=== PATIENT | female | born 1965 | race African-American/Black ===

== ENCOUNTER 2023-04-06 13:16 | Outpatient (AMB) | payer OTHER, SELFPAY ==
[2023-04-06 13:43] VITALS: BP 114/70; PULSE 88; O2SAT 99; BMI 27.3
--- NOTE | 2023-04-06 13:43 | MHC.OFFVIS ---
Intake Vital Signs 04/06/23 13:43 Height 4 ft 11 in Weight 135 lb BMI 27.3 BP 114/70 Blood Pressure Location Rt brachial Position Sitting Pulse 88 Pulse Source Pulse Oximeter Pulse Oximetry (%) 99 Oxygen Delivery Method Room Air Intake Visit Reasons: Shortness of breath Machine Binding Folder Required: No Allergies Penicillins [PCN] Allergy (Mild, Unverified 04/06/23 13:45) HIVES HPI HPI Comments History of Present Illness Details The patient is here for a pulmonary evaluation. The patient is a 57 year woman with a known history of tobacco dependency who presents with ongoing worsening respiratory symptoms over the last few months. She has been diagnosed with an upper respiratory illness back in the summer and then after that she has had a couple lower respiratory infection with significant bronchitis and mucus production. She was given a rescue inhaler. Because of the ongoing smoking the patient was referred to the lung cancer screening program at [facility]. Although she has been reluctant to go because of concerns of what they could find. I did encourage her to do it. She did have a chest x-ray relatively recent that I did review demonstrating no acute disease which is reassuring. In addition to that she does need to undergo pulmonary function studies that I do not see available as of yet. The patient does have the rescue inhaler but she has not used it. She still coughing some but the mucus appears to be more related to a recent lower respiratory infection as her mom also has been sick with a viral syndrome as well. She has been coughing up yellowish mucus. Drjv-[id number] severity. Denies any wheezing or chest tightness. Otherwise the patient is doing well. [facility] Medical History (Updated 04/06/23 @ 18:55 by Itz Rosales MD) Cough Tobacco dependence Social History (Updated 04/06/23 @ 13:47 by STEFANIA Rios) Patient Tobacco Use Status: Current everyday Tobacco user Tobacco use type: Cigarette Review of Systems Const Denies fever(s) and Denies weight loss Eyes Reports no additional complaints ENT Reports nasal congestion and Reports nasal discharge Card Denies chest pain Resp Reports chest congestion, Reports cough and Denies wheezing GI Reports no additional complaints Musc Reports no additional complaints Skin/Breast Denies rash Neuro Reports no additional complaints Rasheed/Lymph Denies lymphadenopathy Aller/Immun Denies wheezing Physical Exam Vital Signs: Last Vital Signs Pulse 88 04/06/23 13:43 BP 114/70 04/06/23 13:43 Pulse Ox 99 04/06/23 13:43 Oxygen Delivery Method Room Air 04/06/23 13:43 BMI result Body Mass Index 27.3 Const General: comfortable HEENT Head: Yes normocephalic Neck Neck: Yes supple Chest Chest palpation & inspection: normal inspection of the chest Resp Effort & Inspection: normal respiratory effort Auscultation: clear to auscultation bilaterally, no rales, no rhonchi and no wheezes Cardio Rate: regular rate Rhythm: regular rhythm Heart sounds: S1 normal heart sound present and S2 normal heart sound present GI Palpation (GI): Soft to palpation Skin General skin exam: no rashes or lesions noted Extrem General: Yes no clubbing, cyanosis or edema Assessment & Plan Assessment & Plan (1) Tobacco dependence: Code(s): F17.200 - Nicotine dependence, unspecified, uncomplicated (2) Cough: Code(s): R05.9 - Cough, unspecified Qualifiers: Cough type: subacute Qualified Code(s): R05.2 - Subacute cough Plan BOBBY as needed Start Wellbutrin 75mg BID x 14 days, then 150mg BID start nicotene patch when ready to quit PFTs LDCT-at [facility] F/U 3-4 months Orders: Orders PFT pulmonary function test Today R05.2 - Subacute cough Medications: New bupropion HCl 150 mg (2 x 75 mg) PO BID 120 tabs 11RF 30 days nicotine 1 patch transdermal DAILY 28 ea 6RF 28 days doxycycline hyclate 100 mg PO BID 20 caps 0RF 10 days Coding Level of Care Code New Pt Level 4 (05459) Diagnoses Tobacco dependence F17.200 Subacute cough R05.2 Cough type: subacute Time Spent (min) 35
== END 2023-04-06 14:42 | disposition home or self-care (01) ==
PROVIDERS: PCP Internal Medicine; Referring Provider Internal Medicine; Visit Provider Hospitalist
DX: F17.200 Nicotine dependence, unspecified, uncomplicated (principal); R05.2 Subacute cough
CPT/HCPCS: 99204

== ENCOUNTER → 2023-04-06 13:16 | Outpatient (BNVA) | payer OTHER, SELFPAY | PROVIDERS: PCP Internal Medicine; Referring Provider Internal Medicine; Visit Provider Hospitalist ==

== ENCOUNTER 2023-07-30 08:39 | Outpatient (REF) | payer OTHER, SELFPAY ==
[2023-07-30 09:27] VITALS: PULSE 88; RESP 16; O2SAT 99
--- NOTE | 2023-07-30 14:03 | PFT_ITS ---
Flows: FEV1: 76 % of predicted at 1.42 L FVC: 89 % of predicted at 2.09 L FEV1/FVC: 68 % Bronchodilator response: Absent Volumes: Total lung capacity: 86 % of predicted at 3.79 L Residual volume: 113 % of predicted at 1.70 L Slow vital capacity: 71 % of predicted at 2.09 L Expiratory reserve volume: 107 % of predicted at 0.75 L Diffusion capacity: Moderately decreased, adjusts to being mildly decreased after correction for alveolar ventilation. Impression: Moderate obstructive ventilatory defect with no bronchodilator response. Decreased diffusion capacity suggests emphysema. MTDD
== END 2023-07-30 08:40 | disposition home or self-care (01) ==
LOC: HO.RESP 08:39
PROVIDERS: PCP Internal Medicine; Visit Provider Hospitalist
DX: R05.2 Subacute cough (principal)
CPT/HCPCS: 94010; 94640; 94727; 94729

== ENCOUNTER → 2023-07-30 14:03 | Outpatient (BNV) | payer OTHER, SELFPAY | PROVIDERS: PCP Internal Medicine; Visit Provider Internal Medicine Pulmonary Disease | DX: R06.09 Other forms of dyspnea (principal) | CPT/HCPCS: 94060; 94727; 94729 ==

== ENCOUNTER 2023-08-31 15:03 | Outpatient (AMB) | payer OTHER, SELFPAY ==
[2023-08-31 15:21] VITALS: PULSE 86; O2SAT 98; BMI 26.3
--- NOTE | 2023-08-31 15:21 | A.OFFVIS_ITS ---
Vital Signs 08/31/23 15:21 Height 4 ft 11 in Weight 130 lb BMI 26.3 Pulse 86 Pulse Source Pulse Oximeter Pulse Oximetry (%) 98 Oxygen Delivery Method Room Air Intake Visit Reasons: dyspnea Nylon Operator Required: No Allergies Penicillins [PCN] Allergy (Mild, Unverified 08/31/23 15:23) HIVES HPI Comments Details: The patient is a 58 year woman with a known history of tobacco dependency who presents with ongoing worsening respiratory symptoms over the last few months. She has been diagnosed with an upper respiratory illness back in the summer and then after that she has had a couple lower respiratory infection with significant bronchitis and mucus production. She was given a rescue inhaler. Because of the ongoing smoking the patient was referred [facility]. Although she has been reluctant to go because of concerns of what they could find. I did encourage her to do it. She did have a chest x-ray relatively recent that I did review demonstrating no acute disease which is reassuring. In addition to that she does need to undergo pulmonary function studies that I do not see available as of yet. The patient does have the rescue inhaler but she has not used it. She still coughing some but the mucus appears to be more related to a recent lower respiratory infection as her mom also has been sick with a viral syndrome as well. She has been coughing up yellowish mucus. [id number]-tglhoqtn severity. Denies any wheezing or chest tightness. Otherwise the patient is doing well. 08/31/2023 the patient is here for a pulmonary follow-up visit. The patient overall is doing okay. She is complaining of increasing shortness of breath and chest congestion. Primarily in the summertime he gets a little more humid and difficult to breathe. She has been using the rescue inhaler but no significant improvement. She did undergo pulmonary function studies which we personally reviewed. Appears to have moderate COPD. No significant response to the albuterol. Therefore, I did recommend she can start a maintenance inhaler. She will start Trelegy at this time. We did go over how to use it. The patient will try and hopefully be able to decrease the amount of medication coming the fall when the air quality becomes little easier. She is also working on smoking cessation. 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 She is waiting to be ready to reach her quit date. I did recommend she can start the Wellbutrin anyway. The patient has not had her lung cancer screening CT scan at [facility]. She has been reluctant to do so. She is going to think about it for now. She also needs a Prevnar 20 vaccine. Will plan to give it to her during the next visit she has not had already. [facility] Medical History (Updated 08/31/23 @ 23:01 by Itz Rosales MD) COPD (chronic obstructive pulmonary disease) Cough Tobacco dependence Social History (Updated 04/06/23 @ 13:47 by STEFANIA Rios) Patient Tobacco Use Status: Current everyday Tobacco user Tobacco use type: Cigarette Review of Systems Const Denies fever(s) and Denies weight loss Eyes Reports no additional complaints ENT Reports nasal congestion and Reports nasal discharge Card Denies chest pain Resp Reports chest congestion, Reports cough and Reports wheezing GI Reports no additional complaints Musc Reports no additional complaints Skin/Breast Denies rash Neuro Reports no additional complaints Rasheed/Lymph Denies lymphadenopathy Aller/Immun Reports wheezing Physical Exam Vital Signs: Last Vital Signs Pulse 86 08/31/23 15:21 Pulse Ox 98 08/31/23 15:21 Oxygen Delivery Method Room Air 08/31/23 15:21 BMI result Body Mass Index 26.3 Const General: comfortable HEENT Head: Yes normocephalic Neck Neck: Yes supple Chest Chest palpation & inspection: normal inspection of the chest Resp Effort & Inspection: normal respiratory effort and prolonged expiratory phase Auscultation: no rales, no rhonchi, no wheezes and diminished lung sounds Cardio Rate: regular rate Rhythm: regular rhythm Heart sounds: S1 normal heart sound present and S2 normal heart sound present GI Palpation (GI): Soft to palpation Skin General skin exam: no rashes or lesions noted Extrem General: Yes no clubbing, cyanosis or edema Assessment & Plan Assessment & Plan (1) Tobacco dependence: Code(s): F17.200 - Nicotine dependence, unspecified, uncomplicated Category: Medical (2) Cough: Code(s): R05.9 - Cough, unspecified Category: Medical Qualifiers: Cough type: subacute Qualified Code(s): R05.2 - Subacute cough (3) COPD (chronic obstructive pulmonary disease): Code(s): J44.9 - Chronic obstructive pulmonary disease, unspecified Category: Medical Qualifiers: COPD type: chronic bronchitis Chronic bronchitis type: mixed simple and mucopurulent Qualified Code(s): J41.8 - Mixed simple and mucopurulent chronic bronchitis Plan BOBBY as needed start Trelegy 200->100 Start Wellbutrin 75mg BID x 14 days, then 150mg BID start nicotene patch when ready to quit LDCT-at [facility] F/U 6 months Medications: New skhxwhuktuo-stdbhxoeg-gepupktx 100-62.5-25 mcg (Trelegy Ellipta) 1 inh inhalation DAILY 60 ea 11RF 30 days J44.9 - Chronic obstructive pulmonary disease, unspecified Coding Level of Care Code Est Pt Level 4 (88331) Diagnoses Tobacco dependence F17.200 Subacute cough R05.2 Cough type: subacute Mixed simple and mucopurulent chronic bronchitis J41.8 COPD type: chronic bronchitis Chronic bronchitis type: mixed simple and mucopurulent Time Spent (min) 17
== END 2023-08-31 15:52 | disposition home or self-care (01) ==
PROVIDERS: PCP Internal Medicine; Visit Provider Hospitalist
DX: F17.200 Nicotine dependence, unspecified, uncomplicated (principal); R05.2 Subacute cough; J41.8 Mixed simple and mucopurulent chronic bronchitis
CPT/HCPCS: 99214

== ENCOUNTER → 2023-08-31 15:03 | Outpatient (BNVA) | payer OTHER, SELFPAY | PROVIDERS: PCP Internal Medicine; Visit Provider Hospitalist ==

== ENCOUNTER 2024-03-06 15:03 | Outpatient (AMB) | payer OTHER, SELFPAY ==
--- NOTE | 2024-03-06 15:13 | MHC.OFFVIS ---
Vital Signs 03/06/24 15:14 Height 4 ft 11 in Weight 134 lb BMI 27.1 BP 110/64 Blood Pressure Location Lt brachial Position Sitting Pulse 87 Pulse Source Pulse Oximeter Pulse Oximetry (%) 99 Oxygen Delivery Method Room Air Intake Visit Reasons: Dyspnea Records Management Manager Required: No Allergies Penicillins [PCN] Allergy (Mild, Unverified 03/06/24 15:19) HIVES HPI Comments Details: The patient is a 58 year woman with a known history of tobacco dependency who presents with ongoing worsening respiratory symptoms over the last few months. She has been diagnosed with an upper respiratory illness back in the summer and then after that she has had a couple lower respiratory infection with significant bronchitis and mucus production. She was given a rescue inhaler. Because of the ongoing smoking the patient was referred to the lung cancer screening program at [facility]. Although she has been reluctant to go because of concerns of what they could find. I did encourage her to do it. She did have a chest x-ray relatively recent that I did review demonstrating no acute disease which is reassuring. In addition to that she does need to undergo pulmonary function studies that I do not see available as of yet. The patient does have the rescue inhaler but she has not used it. She still coughing some but the mucus appears to be more related to a recent lower respiratory infection as her mom also has been sick with a viral syndrome as well. She has been coughing up yellowish mucus. Mrez-ki-dslwvyee severity. Denies any wheezing or chest tightness. Otherwise the patient is doing well. 08/31/2023 the patient is here for a pulmonary follow-up visit. The patient overall is doing okay. She is complaining of increasing shortness of breath and chest congestion. Primarily in the summertime he gets a little more humid and difficult to breathe. She has been using the rescue inhaler but no significant improvement. She did undergo pulmonary function studies which we personally reviewed. Appears to have moderate COPD. No significant response to the albuterol. Therefore, I did recommend she can start a maintenance inhaler. She will start Trelegy at this time. We did go over how to use it. The patient will try and hopefully be able to decrease the amount of medication coming the fall when the air quality becomes little easier. She is also working on smoking cessation. 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 She is waiting to be ready to reach her quit date. I did recommend she can start the Wellbutrin anyway. The patient has not had her lung cancer screening CT scan at [facility]. She has been reluctant to do so. She is going to think about it for now. She also needs a Prevnar 20 vaccine. Will plan to give it to her during the next visit she has not had already. 03/06/2024 the patient is here for a pulmonary follow-up visit. Overall the patient has been doing okay. She is still smoking however. She did not start the Wellbutrin. She has been dealing with her daughter who became sick after traumatic injury. Therefore she has not been able to take care of herself as far as his smoking cessation. She is thinking about starting the Wellbutrin. If she does show start with 1 tablet twice a day and then workup to the 2 tablets twice a day. She also has the patches that she can apply when she is ready to quit. The patient also has been using the Trelegy inhaler that has been affecting beneficial. We did decrease it down to the lower dose and she seems to be tolerating that well. She should be participating in the lung cancer screening program. She had been taking part the [facility] program. Although she has been lost to follow-up with the program. She is going to follow-up with her primary care doctor and she is going to get reinstated. Otherwise she can always call here we can get her active in our program. [facility] Medical History (Updated 08/31/23 @ 23:01 by Itz Rosales MD) COPD (chronic obstructive pulmonary disease) Cough Tobacco dependence Social History (Updated 03/06/24 @ 15:22 by STEFANIA Silver) Patient Tobacco Use Status: Current everyday Tobacco user Tobacco use type: Cigarette Cigarette Packs Per Day: 0.5 Cigarettes Per Day: 5 Review of Systems Const Denies fever(s) and Denies weight loss Eyes Reports no additional complaints ENT Reports nasal congestion and Reports nasal discharge Card Denies chest pain Resp Reports cough and Reports wheezing GI Reports no additional complaints Musc Reports back pain and Reports myalgias Skin/Breast Denies rash Neuro Reports no additional complaints Rasheed/Lymph Denies lymphadenopathy Aller/Immun Reports wheezing Physical Exam Vital Signs: Last Vital Signs Pulse 87 03/06/24 15:14 BP 110/64 03/06/24 15:14 Pulse Ox 99 03/06/24 15:14 Oxygen Delivery Method Room Air 03/06/24 15:14 BMI result Body Mass Index 27.1 Const General: comfortable HEENT Head: Yes normocephalic Neck Neck: Yes supple Chest Chest palpation & inspection: normal inspection of the chest Resp Effort & Inspection: normal respiratory effort Auscultation: no rales, no rhonchi, no wheezes and diminished lung sounds Cardio Rate: regular rate Rhythm: regular rhythm Heart sounds: S1 normal heart sound present and S2 normal heart sound present GI Palpation (GI): Soft to palpation Skin General skin exam: no rashes or lesions noted Extrem General: Yes no clubbing, cyanosis or edema Office Procedures Flu Questionnaire Does the patient have a severe egg allergy?: No Does the patient have severe life threatening allergies?: No Does the patient have a fever or illness today?: No Has the patient ever had Guillain-[place] Syndrome?: No Has the patient ever had any past reaction to a flu shot?: No Immunizations Fluarix Triv [id number] (PF) 45 mcg (15 mcg x 3)/0.5 mL IM syringe Performing Provider: Itz Rosales MD [place] [facility] [place] [facility] Administered by: Itz Rosales MD on 03/06/24 20:50 Dose Route Admin Location Dispensed Lot Number Expiration Date NDC Flower Picker 0.5 mL IM Left Deltoid 0.5 mL [id number] 10/09/24 [id number] [email or web address] VIS Given Date VIS Provided VIS Publication Date 03/06/24 Single Vaccine 20 Eligibility Eligibility Date Funding Source Not [facility] Eligible 03/06/24 Private Assessment & Plan Assessment & Plan (1) Tobacco dependence: Code(s): F17.200 - Nicotine dependence, unspecified, uncomplicated Category: Medical (2) Cough: Code(s): R05.9 - Cough, unspecified Category: Medical Qualifiers: Cough type: subacute Qualified Code(s): R05.2 - Subacute cough (3) COPD (chronic obstructive pulmonary disease): Code(s): J44.9 - Chronic obstructive pulmonary disease, unspecified Category: Medical Qualifiers: COPD type: chronic bronchitis Chronic bronchitis type: mixed simple and mucopurulent Qualified Code(s): J41.8 - Mixed simple and mucopurulent chronic bronchitis Plan BOBBY as needed continue Trelegy 100 [place]CT-at [facility] tobacco cessation: wellbutrin and patch when ready F/U 8-12 months Orders: Orders Influenza [id number] Immunization Today Z23 - Encounter for immunization Medications: New Fluarix Triv [id number] (PF) (flu vacc [id number] 6mos up(PF)) 0.5 mL IM ONCE 0.5 mL 0RF NS Z23 - Encounter for immunization Coding Level of Care Code Est Pt Level 4 (76692) Diagnoses Tobacco dependence F17.200 Subacute cough R05.2 Cough type: subacute Mixed simple and mucopurulent chronic bronchitis J41.8 COPD type: chronic bronchitis Chronic bronchitis type: mixed simple and mucopurulent Time Spent (min) 16
[2024-03-06 15:14] VITALS: BP 110/64; PULSE 87; O2SAT 99; BMI 27.1
== END 2024-03-06 15:54 | disposition home or self-care (01) ==
PROVIDERS: PCP Internal Medicine; Visit Provider Hospitalist
DX: F17.200 Nicotine dependence, unspecified, uncomplicated (principal); R05.2 Subacute cough; J41.8 Mixed simple and mucopurulent chronic bronchitis; Z23 Encounter for immunization
CPT/HCPCS: 99214

== ENCOUNTER → 2024-03-06 15:03 | Outpatient (BNVA) | payer OTHER, SELFPAY | PROVIDERS: PCP Internal Medicine; Visit Provider Hospitalist | DX: J41.8 Mixed simple and mucopurulent chronic bronchitis (principal); R05.2 Subacute cough; F17.210 Nicotine dependence, cigarettes, uncomplicated; Z23 Encounter for immunization | CPT/HCPCS: 90471; 90656 ==

== ENCOUNTER 2024-11-20 10:00 | Outpatient (AMB) | payer OTHER, SELFPAY ==
[2024-11-20 10:03] VITALS: BP 110/60; PULSE 80; O2SAT 99; BMI 28.0
--- NOTE | 2024-11-20 10:03 | MHC.OFFVIS ---
Vital Signs 11/20/24 10:03 Height 4 ft 11 in Weight 138 lb 14.259 oz BMI 28.0 BP 110/60 Blood Pressure Location Lt brachial Position Sitting Pulse 80 Pulse Source Pulse Oximeter Pulse Oximetry (%) 99 Oxygen Delivery Method Room Air Intake Visit Reasons: Dyspnea Director Talent Management Required: No Accompanied by: Self / Same As Patient Allergies Penicillins (PCN) Allergy (Mild, Verified 11/20/24 10:07) HIVES HPI Comments Details: The patient is a 59 year woman with a known history of tobacco dependency who presents with ongoing worsening respiratory symptoms over the last few months. She has been diagnosed with an upper respiratory illness back in the summer and then after that she has had a couple lower respiratory infection with significant bronchitis and mucus production. She was given a rescue inhaler. Because of the ongoing smoking the patient was referred to the lung cancer screening program at [facility]. Although she has been reluctant to go because of concerns of what they could find. I did encourage her to do it. She did have a chest x-ray relatively recent that I did review demonstrating no acute disease which is reassuring. In addition to that she does need to undergo pulmonary function studies that I do not see available as of yet. The patient does have the rescue inhaler but she has not used it. She still coughing some but the mucus appears to be more related to a recent lower respiratory infection as her mom also has been sick with a viral syndrome as well. She has been coughing up yellowish mucus. [id number] severity. Denies any wheezing or chest tightness. Otherwise the patient is doing well. 08/31/2023 the patient is here for a pulmonary follow-up visit. The patient overall is doing okay. She is complaining of increasing shortness of breath and chest congestion. Primarily in the summertime he gets a little more humid and difficult to breathe. She has been using the rescue inhaler but no significant improvement. She did undergo pulmonary function studies which we personally reviewed. Appears to have moderate COPD. No significant response to the albuterol. Therefore, I did recommend she can start a maintenance inhaler. She will start Trelegy at this time. We did go over how to use it. The patient will try and hopefully be able to decrease the amount of medication coming the fall when the air quality becomes little easier. She is also working on smoking cessation. She did turkey picker the Wellbutrin and she also has a nicotine patches. She is waiting to be ready to reach her quit date. I did recommend she can start the Wellbutrin anyway. The patient has not had her lung cancer screening CT scan at [facility]. She has been reluctant to do so. She is going to think about it for now. She also needs a Prevnar 20 vaccine. Will plan to give it to her during the next visit she has not had already. 03/06/2024 the patient is here for a pulmonary follow-up visit. Overall the patient has been doing okay. She is still smoking however. She did not start the Wellbutrin. She has been dealing with her daughter who became sick after traumatic injury. Therefore she has not been able to take care of herself as far as his smoking cessation. She is thinking about starting the Wellbutrin. If she does show start with 1 tablet twice a day and then workup to the 2 tablets twice a day. She also has the patches that she can apply when she is ready to quit. The patient also has been using the Trelegy inhaler that has been affecting beneficial. We did decrease it down to the lower dose and she seems to be tolerating that well. She should be participating in the lung cancer screening program. She had been taking part the [facility] program. Although she has been lost to follow-up with the program. She is going to follow-up with her primary care doctor and she is going to get reinstated. Otherwise she can always call here we can get her active in our program. 11/20/2024 the patient is here for a pulmonary follow-up visit. Overall the patient is doing well. She continues on the Trelegy. She also has a rescue inhaler. Unfortunately she continues to smoke cigarettes. She was supposed to take part in the lung cancer screening program at [facility] but she had not done so. Therefore she is agreeable to be referred to the program here will we can do the low-dose CT scans on a yearly basis with the risks was smoking and her risk of lung cancer. Otherwise the patient denies any other complaints. Will have her follow-up sometime in 2025 and will follow-up with her low-dose CAT scan when is available. We did talk about vaccines as well she does need to get a pneumonia vaccine provided and also she is also eligible for the RSV vaccine in the flu shot in the fall. [facility] Medical History (Updated 08/31/23 @ 23:01 by Itz Rosales MD) COPD (chronic obstructive pulmonary disease) Cough Tobacco dependence Social History Patient Tobacco Use Status: Current everyday Tobacco user Tobacco use type: Cigarette Cigarette Packs Per Day: 0.5 Cigarettes Per Day: 5 Review of Systems Const Denies fever(s) and Denies weight loss Eyes Reports no additional complaints ENT Reports nasal congestion and Reports nasal discharge Card Denies chest pain Resp Reports cough and Reports wheezing GI Reports no additional complaints Musc Reports back pain and Reports myalgias Skin/Breast Denies rash Neuro Reports no additional complaints Rasheed/Lymph Denies lymphadenopathy Aller/Immun Reports wheezing Physical Exam Vital Signs: Last Vital Signs Pulse 80 11/20/24 10:03 BP 110/60 11/20/24 10:03 Pulse Ox 99 11/20/24 10:03 Oxygen Delivery Method Room Air 11/20/24 10:03 BMI result Body Mass Index 28.0 Const General: comfortable HEENT Head: Yes normocephalic Neck Neck: Yes supple Chest Chest palpation & inspection: normal inspection of the chest Resp Effort & Inspection: normal respiratory effort Auscultation: no rales, no rhonchi, no wheezes and diminished lung sounds Cardio Rate: regular rate Rhythm: regular rhythm Heart sounds: S1 normal heart sound present and S2 normal heart sound present GI Palpation (GI): Soft to palpation Skin General skin exam: no rashes or lesions noted Extrem General: Yes no clubbing, cyanosis or edema Assessment & Plan Assessment & Plan (1) Tobacco dependence: Code(s): F17.200 - Nicotine dependence, unspecified, uncomplicated Category: Medical (2) Cough: Code(s): R05.9 - Cough, unspecified Category: Medical Qualifiers: Cough type: subacute Qualified Code(s): R05.2 - Subacute cough (3) COPD (chronic obstructive pulmonary disease): Code(s): J44.9 - Chronic obstructive pulmonary disease, unspecified Category: Medical Qualifiers: COPD type: chronic bronchitis Chronic bronchitis type: mixed simple and mucopurulent Qualified Code(s): J41.8 - Mixed simple and mucopurulent chronic bronchitis Plan BOBBY as needed continue Trelegy 100 start LDCT tobacco cessation: wellbutrin and patch when ready F/U 8-12 months Orders: Referrals Lung Cancer Screening Referral F17.200 - Nicotine dependence, unspecified, uncomplicated Coding Level of Care Code Est Pt Level 4 (37180) Diagnoses Tobacco dependence F17.200 Subacute cough R05.2 Cough type: subacute Mixed simple and mucopurulent chronic bronchitis J41.8 COPD type: chronic bronchitis Chronic bronchitis type: mixed simple and mucopurulent Time Spent (min) 16
--- OUTSIDE RECORDS SUMMARY | 2024-11-20 10:37 | XMS_ITS | Patient Health Record ---
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 Name Role Phone LAURE CARDENAS Unavailable [phone] KRISTEL QUIROGAEN Unavailable [phone] ANGEL AMADOR Unavailable [phone] Allergies Allergen (clinical drug ingredient) Drug/Non Drug Allergy documented on EMR Reaction Allergy Type Onset Date Status Penicillin hives Drug Allergy Active Results Component Value Reference Range Notes CBC WITH AUTO DIFFERENTIAL Reviewed date:04/07/2024 11:37:53 AM Interpretation: Performing Lab: Notes/Report: WBC 12.5 4.8-10.8 K/mcL RBC 4.60 3.80-4.80 M/mcL Hemoglobin 14.1 11.5-16.0 g/dL Hematocrit 43.1 35.0-47.0 % MCV 94.5 79.0-98.0 FL MCH 30.9 27.0-32.0 pcg MCHC 32.7 32.0-37.0 g/dL RDW 13.2 11.0-15.0 % Platelets 346 130-400 K/mcL MPV 10.2 7.0-11.0 FL NRBC 0.0 <1.0 % NRBC Absolute 0.00 <0.10 K/mcL Neutrophils Relative 60.2 Lymphocytes Relative 29.0 Monocytes Relative 6.6 Eosinophils Relative 3.6 Basophils Relative 0.4 Immature Granulocytes Relative 0.2 Neutrophils Absolute 7.53 1.50-7.00 K/mcL Lymphocytes Absolute 3.63 1.00-5.00 K/mcL Monocytes Absolute 0.82 0.20-1.00 K/mcL Eosinophils Absolute 0.45 0.00-0.50 K/mcL Basophils Absolute 0.05 0.00-0.20 K/mcL Immature Granulocytes Absolute 0.03 0.00-0.03 K/mcL EKG (Not yet reviewed by pro vider) Interpretation: Performing Lab: Notes/Report: ECGDiastolicBP 68 ECGHr 65 ECGPRInterval 172 ECGPWaveAxis 64 ECGQRSDuration 92 ECGQrsWaveAxis 67 ECGQTcInterval 410 ECGQTInterval 402 ECGSystolicBP 126 ECGTWaveAxis 43 RR_DiastolicBP 0 RR_MaxRRInterval 0 RR_MeanHR 0 RR_MeanRRInterval 0 RR_MinRRInterval 0 RR_NumBeats 0 RR_NumNormalBeats 0 RR_SystolicBP 0 Reason For Referral No Information Medications Medication SIG (Take, Route, Frequency, Duration) Notes Start Date End Date Status hydroCHLOROthiazide 12.5 MG TAKE 1 CAPSU LE BY MOUTH EVERY DAY IN THE MORNING FOR 90 DAYS; Duration: 90 Active Flonase Allergy Relief 50 MCG/ACT 1 spray in each nostril Nasally Once a day; Duration: 30 day(s) 09/15/2021 Active Albuterol Sulfate HFA 108 (90 Base) MCG/ACT INHALE 1 PUFF INTO THE LUNGS EVERY 4 HOURS NEEDED FOR 30 DAYS; Duration: 30 Active Atorvastatin Calcium 10 MG TAKE 1 TABLET BY MOUTH EVERY DAY; Duration: 90 Active Trelegy Ellipta 100mg tablet A ctive Betamethasone Dipropionate Aug 0.05 % 1 application Externally Once a day; Duration: 90 days Active Immunizations Vaccine Route Administration Date Status Comme nts influenza IM Intramuscular 02/11/2021 Administered influenza IM Intramuscular 04/07/2023 Administered Social History Tobacco Use: Social History Observation Description Date Details (start date - stop date) Former Smoker NA - NA Tobacco Use/Smoking Question Answer Notes Are you a former smoker Alcohol Screen (Audit-C) Question Answer Notes Did you have a drink contain ing alcohol in the past year? Yes How often did you have a dri nk containing alcohol in the past year? Monthly or less (1 point) How many drinks did you have on a typical day when you were drinking in the past year? 1 or 2 drinks (0 point) How often did you have 6 or more drinks on one occasion in the past year? Never (0 point) Points 1 Interpretation Negative Section Notes: on and off smoker for years on and off smoker for years Quit smoking about 1 1/2 years ago Tob: Less than 1/2 PPD, off on and off smoker for years ETOH: Rare on and off smoker for years Tob: Less than 1/2 PPD, off on and off smoker for years ETOH: Rare on and off smoker for years on and off smoker for years Quit smoking about 1 1/2 years ago on and off smoker for years on and off smoker for years Quit smoking about 1 1/2 years ago on and off smoker for years on and off smoker for years on and off smoker for years on and off smoker for years on and off smoker for years on and off smoker for years on and off smoker for years on and off smoker for years on and off smoker for years on and off smoker for years on and off smoker for years Problems Problem Type SNOMED Code ICD Code Onset Dates Problem Status W/U Status Risk Notes Problem Chronic rhinitis (31313942) Chronic rhinitis (J31.0) Active confirmed Problem Chronic maxillary sinusitis (00080010) Chronic maxillary sinusitis (J32.0) Active confirmed Problem Chronic sinusitis (13561175) Chronic sinusitis, unspecified (J32.9) Active confirmed Problem Hematuria (80074699) Hematuria, unspecified (R31.9) Active confirmed Problem Screening for osteoporosis (712889191) Encounter for screening for osteoporosis (Z13.820) Active confirmed Problem Hyperlipidemia (04690069) Hyperlipidemia, unspecified (E78.5) Active confirmed Problem Hyperlipidaemia (68386680) Hyperlipidemia, unspecified hyperlipidemia type (E78.5) Active confirmed Problem Hematuria syndrome (69689273) Hematuria, unspecified type (R31.9) Active confirmed Problem Hypothyroidism (47767876) Hypothyroidism, unspecified type (E03.9) Active confirmed Problem Seasonal allergy (711504001) Seasonal allergies (J30.2) Active confirmed Problem Vitamin D deficiency (51978116) Vitamin D deficiency (E55.9) Active confirmed Problem Screening for malignant neoplasm of breast (701555654) Breast cancer screening by mammogram (Z12.31) Active confirmed Problem Leukocytosis (907678440) Leukocytosis, unspecified type (D72.829) Active confirmed Problem Allergic rhinitis caused by pollen (89886852) Seasonal allergic rhinitis due to pollen (J30.1) Active confirmed Problem Mixed hyperlipidemia (442672103) Moderate mixed hyperlipidemia not requiring statin therapy (E78.2) Active confirmed Problem Headache (81808603) Headache, unspecified (R51.9) Active confirmed Problem Elevated blood-pressure reading without diagnosis of hypertension (979027979) Elevated blood pressure reading (R03.0) Active confirmed Problem Chronic frontal sinusitis (78635752) Frontal sinusitis, unspecified chronicity (J32.1) Active confirmed Problem Recurrent sinusitis (381957901) Recurrent sinusitis (J32.9) Active confirmed Problem Paresthesia (80020400) Paresthesia (R20.2) Active confirmed Problem Vitamin B>12< deficiency anaemia (86655878) Anemia due to vitamin B12 deficiency, 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) Active confirmed Problem Screening for skin cancer (837936919) Skin cancer screening (Z12.83) Active confirmed Problem Smoking (51866392) Smoking (F17.200) Active con firmed Problem Allergic rhinitis (71574615) Seasonal allergic rhinitis due to other allergic trigger (J30.89) Active confirmed Problem Skin sensation disturbance (58254683) Hand numbness (R20.0) Active confirmed Problem Skin sensation disturbance (21963157) Right hand paresthesia (R20.2) Active confirmed Problem Asthma (601088885) Asthma (J45.909) Active conf irmed Problem Low back pain (finding) (891278672) Back pain at L4-L5 level (M54.50) Active confirmed Problem Leukocytosis (603231057) Leukocytosis, unspecified (D72.829) Active confirmed Problem Essential hypertension (98867588) Hypertension, essential (I10) Active confirmed Vital Signs Heart Rate 89 /min 08/22/2024 Oximetry 98 % 08/22/2024 Blood pressure diastolic 72 mm Hg 08/22/2024 Height 60 in 08/22/2024 Blood pressure systolic 132 mm Hg 08/22/2024 Weight 140.0 lbs 08/22/2024 BMI 27.34 kg/m2 08/22/2024 Encounters Encounter Location Date Provider Diagnosis [facility] [address] [place] [address] 04/10/2024 ANGEL AMADOR Leukocytosis, unspecified D72.829 ; Annual physical exam Z00.00 ; Chest pain in adult R07.9 ; Recurrent sinusitis J32.9 ; URI, acute J06.9 ; Adult general medical exam Z00.00 ; Hyperlipidemia, unspecified E78.5 ; Vitamin D deficiency E55.9 ; Hypothyroidism, unspecified type E03.9 ; Anemia due to vitamin B12 deficiency, unspecified B12 deficiency type D51.9 ; Breast cancer screening by mammogram Z12.31 ; Encounter for screening for osteoporosis Z13.820 and Close exposure to 2019 novel coronavirus Z20.[address] [facility] [address] [place] [address] 08/22/2024 ANGEL AMADOR Leukocytosis, unspecified D72.829 ; Hyperlipidemia, unspecified E78.5 ; Vitamin D deficiency E55.9 ; Hypothyroidism, unspecified type E03.9 ; Hip pain, left M25.552 and Encounter for examination of blood pressure without abnormal findings Z01.[address] [facility] [address] [place] [address] 01/04/2024 LAURE CARDENAS [facility] [address] [address] 04/10/2024 ANGEL AMADOR [facility] [address] [address] 04/13/2024 ANGEL AMADOR [facility] [address] [address] 04/26/2024 ANGEL AMADOR Assessments Encounter Date Diagnosis (ICD Code) Assessment Notes Treatment Notes Treatment Clinical Notes Section Notes 04/10/2024 Annual physical exam (ICD-10 - Z00.00) #Leukocytosis. CBC only obtained. Need peripheral smear. Consider consultation to hematology if peripheral smear is abnormal. Would like to rule out CLL. #Hypertension. Well-controlled #Asthma. Patient was instructed to rinse her mouth after use of Trelegy, as this could be contributing to recurrent sinusitis and tooth infections. # URI sx. COVID swab pending. High risk for bronchitis given smoking hx # Chest pain; Reports ongoing off and on over a few months. Check EKG. Stress test will be ordered .No family hx of cardiac disease # Vaccines: UTD # Screenings: Mammo/bone density due. STAFF THERAPIST pap due. # HCP: Daughter Patient seen and examined. Comprehensive discussion was done on the following. 1. Nutrition: It is important to follow a healthy diet based on lots of vegetables and legumes and good fat. Avoid processed food and processed carbohydrates. Learn to prepare your own meals. Learn to read labels and avoid high fructose corn syrup, processed chemicals added to increase shelf life and preprepared meals. Avoid fast foods. Learn to eat slowly and plan meals for a week. Try to count calories and be mindful off daily calorie intake. Get into the habit of keeping an eye on your weight by using an appropriate scale. Learn to log exercise and discussed fitness Apps like [employer] which can help keep log off calories taken versus calories burned. Local food should be preferred. Discussed Dirty Dozen Versus Clean Fifteen. Discussed healthy supplements like fish oil, Tumeric, Curcumin, Melatonin, Resveratrol, Probiotics, Vitamin-D, Alpha-Lipoic acid, Vitamin-D and coconut oil. 2. It is important to exercise regularly. Is a good habit to walk at least 30-45 minutes a day. Gentle weightlifting with standard precautions to protect the back. Finding activity like cycling or hiking and get into the habit of engaging in it. Stretching before and after the exercises important. It is also important to contact me if there are any problems like shortness of breath, chest pain, back pain and joint or muscle pain associated with the exercise. 3. Discussed age appropriate screening guidelines. Colonoscopy needs to start at age 50 with stool for occult blood as appropriate. There is a new test that can test for genetic abnormalities in the stool sample. This would not replace a colonoscopy but could be used as a screening tool for patients who do not want a colonoscopy. We discussed the importance of early detection of colon cancer. 4. Discussed current guidelines with respect to breast examination, mammogram and pap smear for early detection of breast and cervical cancer. Patient advised to follow up with these appointments. 5. Discussed safe driving and no use of smart phone while driving 6. Age-appropriate immunizations were discussed. A tetanus booster is needed every 10 years. Flu vaccine is recommended every year just before the start of the flu season. Shingles vaccine is recommended after age 50 but not all insurances cover it.Pneumonia vaccine is given after age 65 unless there are certain comorbidities for which it is started earlier. 7. Diagnostic labs were discussed. These could include CBC CMP and lipids with fasting blood glucose and insulin levels. Vitamin D and hemoglobin A1c testing might be appropriate. Case discussed with collaborating physician Julienne Cardenas who reviewed the assessment and plan. Chart, medications, labs, vital signs reviewed. Dictation was accomplished with the use of [employer] voice recognition software, prone to medical misidentifications and grammatical errors. This is unintentional and the practitioner does try to identify and correct these, but some could still be present. Please do not hesitate to contact practitioner for clarification. All questions answered to patients satisfaction. Patient verbalized understanding of diagnosis and treatments explained. To call sooner prior to next visit it any questions/concerns arise. 04/10/2024 Leukocytosis, unspecified (ICD-10 - D72.829) #Leukocytosis. CBC only obtained. Need peripheral smear. Consider consultation to hematology if peripheral smear is abnormal. Would like to rule out CLL. #Hypertension. Well-controlled #Asthma. Patient was instructed to rinse her mouth after use of Trelegy, as this could be contributing to recurrent sinusitis and tooth infections. # URI sx. COVID swab pending. High risk for bronchitis given smoking hx # Chest pain; Reports ongoing off and on over a few months. Check EKG. Stress test will be ordered .No family hx of cardiac disease # Vaccines: UTD # Screenings: Mammo/bone density due. STAFF THERAPIST pap due. # HCP: Daughter Patient seen and examined. Comprehensive discussion was done on the following. 1. Nutrition: It is important to follow a healthy diet based on lots of vegetables and legumes and good fat. Avoid processed food and processed carbohydrates. Learn to prepare your own meals. Learn to read labels and avoid high fructose corn syrup, processed chemicals added to increase shelf life and preprepared meals. Avoid fast foods. Learn to eat slowly and plan meals for a week. Try to count calories and be mindful off daily calorie intake. Get into the habit of keeping an eye on your weight by using an appropriate scale. Learn to log exercise and discussed fitness Apps like [employer] which can help keep log off calories taken versus calories burned. Local food should be preferred. Discussed Dirty Dozen Versus Clean Fifteen. Discussed healthy supplements like fish oil, Tumeric, Curcumin, Melatonin, Resveratrol, Probiotics, Vitamin-D, Alpha-Lipoic acid, Vitamin-D and coconut oil. 2. It is important to exercise regularly. Is a good habit to walk at least 30-45 minutes a day. Gentle weightlifting with standard precautions to protect the back. Finding activity like cycling or hiking and get into the habit of engaging in it. Stretching before and after the exercises important. It is also important to contact me if there are any problems like shortness of breath, chest pain, back pain and joint or muscle pain associated with the exercise. 3. Discussed age appropriate screening guidelines. Colonoscopy needs to start at age 50 with stool for occult blood as appropriate. There is a new test that can test for genetic abnormalities in the stool sample. This would not replace a colonoscopy but could be used as a screening tool for patients who do not want a colonoscopy. We discussed the importance of early detection of colon cancer. 4. Discussed current guidelines with respect to breast examination, mammogram and pap smear for early detection of breast and cervical cancer. Patient advised to follow up with these appointments. 5. Discussed safe driving and no use of smart phone while driving 6. Age-appropriate immunizations were discussed. A tetanus booster is needed every 10 years. Flu vaccine is recommended every year just before the start of the flu season. Shingles vaccine is recommended after age 50 but not all insurances cover it.Pneumonia vaccine is given after age 65 unless there are certain comorbidities for which it is started earlier. 7. Diagnostic labs were discussed. These could include CBC CMP and lipids with fasting blood glucose and insulin levels. Vitamin D and hemoglobin A1c testing might be appropriate. Case discussed with collaborating physician Julienne Cardenas who reviewed the assessment and plan. Chart, medications, labs, vital signs reviewed. Dictation was accomplished with the use of [employer] voice recognition software, prone to medical misidentifications and grammatical errors. This is unintentional and the practitioner does try to identify and correct these, but some could still be present. Please do not hesitate to contact practitioner for clarification. All questions answered to patients satisfaction. Patient verbalized understanding of diagnosis and treatments explained. To call sooner prior to next visit it any questions/concerns arise. 08/22/2024 Hyperlipidemia, unspecified (ICD-10 - E78.5) #Leukocytosis. CBC only obtained. Need peripheral smear. Consider consultation to hematology if peripheral smear is abnormal. Would like to rule out CLL. #Hypertension. Well-controlled # Left hip pain. Check L hip and pelvic x-ray. ? OA. # Fatigue. Awaiting pt to complete lab work. Case discussed with collaborating physician Jesusita Cardenas who reviewed the assessment and plan. Chart, medications, labs, vital signs reviewed. Dictation was accomplished with the use of [employer] voice recognition software, prone to medical misidentifications and grammatical errors. This is unintentional and the practitioner does try to identify and correct these, but some could still be present. Please do not hesitate to contact practitioner for clarification. All questions answered to patients satisfaction. Patient verbalized understanding of diagnosis and treatments explained. To call sooner prior to next visit it any questions/concerns arise. 08/22/2024 Leukocytosis, unspecified (ICD-10 - D72.829) #Leukocytosis. CBC only obtained. Need peripheral smear. Consider consultation to hematology if peripheral smear is abnormal. Would like to rule out CLL. #Hypertension. Well-controlled # Left hip pain. Check L hip and pelvic x-ray. ? OA. # Fatigue. Awaiting pt to complete lab work. Case discussed with collaborating physician Jesusita Cardenas who reviewed the assessment and plan. Chart, medications, labs, vital signs reviewed. Dictation was accomplished with the use of [employer] voice recognition software, prone to medical misidentifications and grammatical errors. This is unintentional and the practitioner does try to identify and correct these, but some could still be present. Please do not hesitate to contact practitioner for clarification. All questions answered to patients satisfaction. Patient verbalized understanding of diagnosis and treatments explained. To call sooner prior to next visit it any questions/concerns arise. 08/22/2024 Vitamin D deficiency (ICD-10 - E55.9) #Leukocytosis. CBC only obtained. Need peripheral smear. Consider consultation to hematology if peripheral smear is abnormal. Would like to rule out CLL. #Hypertension. Well-controlled # Left hip pain. Check L hip and pelvic x-ray. ? OA. # Fatigue. Awaiting pt to complete lab work. Case discussed with collaborating physician Jesusita Cardenas who reviewed the assessment and plan. Chart, medications, labs, vital signs reviewed. Dictation was accomplished with the use of [employer] voice recognition software, prone to medical misidentifications and grammatical errors. This is unintentional and the practitioner does try to identify and correct these, but some could still be present. Please do not hesitate to contact practitioner for clarification. All questions answered to patients satisfaction. Patient verbalized understanding of diagnosis and treatments explained. To call sooner prior to next visit it any questions/concerns arise. 04/10/2024 Chest pain in adult (ICD-10 - R07.9) #Leukocytosis. CBC only obtained. Need peripheral smear. Consider consultation to hematology if peripheral smear is abnormal. Would like to rule out CLL. #Hypertension. Well-controlled #Asthma. Patient was instructed to rinse her mouth after use of Trelegy, as this could be contributing to recurrent sinusitis and tooth infections. # URI sx. COVID swab pending. High risk for bronchitis given smoking hx # Chest pain; Reports ongoing off and on over a few months. Check EKG. Stress test will be ordered .No family hx of cardiac disease # Vaccines: UTD # Screenings: Mammo/bone density due. STAFF THERAPIST pap due. # HCP: Daughter Patient seen and examined. Comprehensive discussion was done on the following. 1. Nutrition: It is important to follow a healthy diet based on lots of vegetables and legumes and good fat. Avoid processed food and processed carbohydrates. Learn to prepare your own meals. Learn to read labels and avoid high fructose corn syrup, processed chemicals added to increase shelf life and preprepared meals. Avoid fast foods. Learn to eat slowly and plan meals for a week. Try to count calories and be mindful off daily calorie intake. Get into the habit of keeping an eye on your weight by using an appropriate scale. Learn to log exercise and discussed fitness Apps like [employer] which can help keep log off calories taken versus calories burned. Local food should be preferred. Discussed Dirty Dozen Versus Clean Fifteen. Discussed healthy supplements like fish oil, Tumeric, Curcumin, Melatonin, Resveratrol, Probiotics, Vitamin-D, Alpha-Lipoic acid, Vitamin-D and coconut oil. 2. It is important to exercise regularly. Is a good habit to walk at least 30-45 minutes a day. Gentle weightlifting with standard precautions to protect the back. Finding activity like cycling or hiking and get into the habit of engaging in it. Stretching before and after the exercises important. It is also important to contact me if there are any problems like shortness of breath, chest pain, back pain and joint or muscle pain associated with the exercise. 3. Discussed age appropriate screening guidelines. Colonoscopy needs to start at age 50 with stool for occult blood as appropriate. There is a new test that can test for genetic abnormalities in the stool sample. This would not replace a colonoscopy but could be used as a screening tool for patients who do not want a colonoscopy. We discussed the importance of early detection of colon cancer. 4. Discussed current guidelines with respect to breast examination, mammogram and pap smear for early detection of breast and cervical cancer. Patient advised to follow up with these appointments. 5. Discussed safe driving and no use of smart phone while driving 6. Age-appropriate immunizations were discussed. A tetanus booster is needed every 10 years. Flu vaccine is recommended every year just before the start of the flu season. Shingles vaccine is recommended after age 50 but not all insurances cover it.Pneumonia vaccine is given after age 65 unless there are certain comorbidities for which it is started earlier. 7. Diagnostic labs were discussed. These could include CBC CMP and lipids with fasting blood glucose and insulin levels. Vitamin D and hemoglobin A1c testing might be appropriate. Case discussed with collaborating physician Julienne Cardenas who reviewed the assessment and plan. Chart, medications, labs, vital signs reviewed. Dictation was accomplished with the use of [employer] voice recognition software, prone to medical misidentifications and grammatical errors. This is unintentional and the practitioner does try to identify and correct these, but some could still be present. Please do not hesitate to contact practitioner for clarification. All questions answered to patients satisfaction. Patient verbalized understanding of diagnosis and treatments explained. To call sooner prior to next visit it any questions/concerns arise. 08/22/2024 Hypothyroidism, unspecified type (ICD-10 - E03.9) #Leukocytosis. CBC only obtained. Need peripheral smear. Consider consultation to hematology if peripheral smear is abnormal. Would like to rule out CLL. #Hypertension. Well-controlled # Left hip pain. Check L hip and pelvic x-ray. ? OA. # Fatigue. Awaiting pt to complete lab work. Case discussed with collaborating physician Jesusita Cardenas who reviewed the assessment and plan. Chart, medications, labs, vital signs reviewed. Dictation was accomplished with the use of [employer] voice recognition software, prone to medical misidentifications and grammatical errors. This is unintentional and the practitioner does try to identify and correct these, but some could still be present. Please do not hesitate to contact practitioner for clarification. All questions answered to patients satisfaction. Patient verbalized understanding of diagnosis and treatments explained. To call sooner prior to next visit it any questions/concerns arise. 04/10/2024 Recurrent sinusitis (ICD-10 - J32.9) #Leukocytosis. CBC only obtained. Need peripheral smear. Consider consultation to hematology if peripheral smear is abnormal. Would like to rule out CLL. #Hypertension. Well-controlled #Asthma. Patient was instructed to rinse her mouth after use of Trelegy, as this could be contributing to recurrent sinusitis and tooth infections. # URI sx. COVID swab pending. High risk for bronchitis given smoking hx # Chest pain; Reports ongoing off and on over a few months. Check EKG. Stress test will be ordered .No family hx of cardiac disease # Vaccines: UTD # Screenings: Mammo/bone density due. STAFF THERAPIST pap due. # HCP: Daughter Patient seen and examined. Comprehensive discussion was done on the following. 1. Nutrition: It is important to follow a healthy diet based on lots of vegetables and legumes and good fat. Avoid processed food and processed carbohydrates. Learn to prepare your own meals. Learn to read labels and avoid high fructose corn syrup, processed chemicals added to increase shelf life and preprepared meals. Avoid fast foods. Learn to eat slowly and plan meals for a week. Try to count calories and be mindful off daily calorie intake. Get into the habit of keeping an eye on your weight by using an appropriate scale. Learn to log exercise and discussed fitness Apps like [employer] which can help keep log off calories taken versus calories burned. Local food should be preferred. Discussed Dirty Dozen Versus Clean Fifteen. Discussed healthy supplements like fish oil, Tumeric, Curcumin, Melatonin, Resveratrol, Probiotics, Vitamin-D, Alpha-Lipoic acid, Vitamin-D and coconut oil. 2. It is important to exercise regularly. Is a good habit to walk at least 30-45 minutes a day. Gentle weightlifting with standard precautions to protect the back. Finding activity like cycling or hiking and get into the habit of engaging in it. Stretching before and after the exercises important. It is also important to contact me if there are any problems like shortness of breath, chest pain, back pain and joint or muscle pain associated with the exercise. 3. Discussed age appropriate screening guidelines. Colonoscopy needs to start at age 50 with stool for occult blood as appropriate. There is a new test that can test for genetic abnormalities in the stool sample. This would not replace a colonoscopy but could be used as a screening tool for patients who do not want a colonoscopy. We discussed the importance of early detection of colon cancer. 4. Discussed current guidelines with respect to breast examination, mammogram and pap smear for early detection of breast and cervical cancer. Patient advised to follow up with these appointments. 5. Discussed safe driving and no use of smart phone while driving 6. Age-appropriate immunizations were discussed. A tetanus booster is needed every 10 years. Flu vaccine is recommended every year just before the start of the flu season. Shingles vaccine is recommended after age 50 but not all insurances cover it.Pneumonia vaccine is given after age 65 unless there are certain comorbidities for which it is started earlier. 7. Diagnostic labs were discussed. These could include CBC CMP and lipids with fasting blood glucose and insulin levels. Vitamin D and hemoglobin A1c testing might be appropriate. Case discussed with collaborating physician Julienne Cardenas who reviewed the assessment and plan. Chart, medications, labs, vital signs reviewed. Dictation was accomplished with the use of [employer] voice recognition software, prone to medical misidentifications and grammatical errors. This is unintentional and the practitioner does try to identify and correct these, but some could still be present. Please do not hesitate to contact practitioner for clarification. All questions answered to patients satisfaction. Patient verbalized understanding of diagnosis and treatments explained. To call sooner prior to next visit it any questions/concerns arise. 08/22/2024 Hip pain, left (ICD-10 - M25.552) #Leukocytosis. CBC only obtained. Need peripheral smear. Consider consultation to hematology if peripheral smear is abnormal. Would like to rule out CLL. #Hypertension. Well-controlled # Left hip pain. Check L hip and pelvic x-ray. ? OA. # Fatigue. Awaiting pt to complete lab work. Case discussed with collaborating physician Jesusita Cardenas who reviewed the assessment and plan. Chart, medications, labs, vital signs reviewed. Dictation was accomplished with the use of [employer] voice recognition software, prone to medical misidentifications and grammatical errors. This is unintentional and the practitioner does try to identify and correct these, but some could still be present. Please do not hesitate to contact practitioner for clarification. All questions answered to patients satisfaction. Patient verbalized understanding of diagnosis and treatments explained. To call sooner prior to next visit it any questions/concerns arise. 04/10/2024 URI, acute (ICD-10 - J06.9) #Leukocytosis. CBC only obtained. Need peripheral smear. Consider consultation to hematology if peripheral smear is abnormal. Would like to rule out CLL. #Hypertension. Well-controlled #Asthma. Patient was instructed to rinse her mouth after use of Trelegy, as this could be contributing to recurrent sinusitis and tooth infections. # URI sx. COVID swab pending. High risk for bronchitis given smoking hx # Chest pain; Reports ongoing off and on over a few months. Check EKG. Stress test will be ordered .No family hx of cardiac disease # Vaccines: UTD # Screenings: Mammo/bone density due. STAFF THERAPIST pap due. # HCP: Daughter Patient seen and examined. Comprehensive discussion was done on the following. 1. Nutrition: It is important to follow a healthy diet based on lots of vegetables and legumes and good fat. Avoid processed food and processed carbohydrates. Learn to prepare your own meals. Learn to read labels and avoid high fructose corn syrup, processed chemicals added to increase shelf life and preprepared meals. Avoid fast foods. Learn to eat slowly and plan meals for a week. Try to count calories and be mindful off daily calorie intake. Get into the habit of keeping an eye on your weight by using an appropriate scale. Learn to log exercise and discussed fitness Apps like [employer] which can help keep log off calories taken versus calories burned. Local food should be preferred. Discussed Dirty Dozen Versus Clean Fifteen. Discussed healthy supplements like fish oil, Tumeric, Curcumin, Melatonin, Resveratrol, Probiotics, Vitamin-D, Alpha-Lipoic acid, Vitamin-D and coconut oil. 2. It is important to exercise regularly. Is a good habit to walk at least 30-45 minutes a day. Gentle weightlifting with standard precautions to protect the back. Finding activity like cycling or hiking and get into the habit of engaging in it. Stretching before and after the exercises important. It is also important to contact me if there are any problems like shortness of breath, chest pain, back pain and joint or muscle pain associated with the exercise. 3. Discussed age appropriate screening guidelines. Colonoscopy needs to start at age 50 with stool for occult blood as appropriate. There is a new test that can test for genetic abnormalities in the stool sample. This would not replace a colonoscopy but could be used as a screening tool for patients who do not want a colonoscopy. We discussed the importance of early detection of colon cancer. 4. Discussed current guidelines with respect to breast examination, mammogram and pap smear for early detection of breast and cervical cancer. Patient advised to follow up with these appointments. 5. Discussed safe driving and no use of smart phone while driving 6. Age-appropriate immunizations were discussed. A tetanus booster is needed every 10 years. Flu vaccine is recommended every year just before the start of the flu season. Shingles vaccine is recommended after age 50 but not all insurances cover it.Pneumonia vaccine is given after age 65 unless there are certain comorbidities for which it is started earlier. 7. Diagnostic labs were discussed. These could include CBC CMP and lipids with fasting blood glucose and insulin levels. Vitamin D and hemoglobin A1c testing might be appropriate. Case discussed with collaborating physician Julienne Cardenas who reviewed the assessment and plan. Chart, medications, labs, vital signs reviewed. Dictation was accomplished with the use of [employer] voice recognition software, prone to medical misidentifications and grammatical errors. This is unintentional and the practitioner does try to identify and correct these, but some could still be present. Please do not hesitate to contact practitioner for clarification. All questions answered to patients satisfaction. Patient verbalized understanding of diagnosis and treatments explained. To call sooner prior to next visit it any questions/concerns arise. 04/10/2024 Adult general medical exam (ICD-10 - Z00.00) #Leukocytosis. CBC only obtained. Need peripheral smear. Consider consultation to hematology if peripheral smear is abnormal. Would like to rule out CLL. #Hypertension. Well-controlled #Asthma. Patient was instructed to rinse her mouth after use of Trelegy, as this could be contributing to recurrent sinusitis and tooth infections. # URI sx. COVID swab pending. High risk for bronchitis given smoking hx # Chest pain; Reports ongoing off and on over a few months. Check EKG. Stress test will be ordered .No family hx of cardiac disease # Vaccines: UTD # Screenings: Mammo/bone density due. STAFF THERAPIST pap due. # HCP: Daughter Patient seen and examined. Comprehensive discussion was done on the following. 1. Nutrition: It is important to follow a healthy diet based on lots of vegetables and legumes and good fat. Avoid processed food and processed carbohydrates. Learn to prepare your own meals. Learn to read labels and avoid high fructose corn syrup, processed chemicals added to increase shelf life and preprepared meals. Avoid fast foods. Learn to eat slowly and plan meals for a week. Try to count calories and be mindful off daily calorie intake. Get into the habit of keeping an eye on your weight by using an appropriate scale. Learn to log exercise and discussed fitness Apps like [employer] which can help keep log off calories taken versus calories burned. Local food should be preferred. Discussed Dirty Dozen Versus Clean Fifteen. Discussed healthy supplements like fish oil, Tumeric, Curcumin, Melatonin, Resveratrol, Probiotics, Vitamin-D, Alpha-Lipoic acid, Vitamin-D and coconut oil. 2. It is important to exercise regularly. Is a good habit to walk at least 30-45 minutes a day. Gentle weightlifting with standard precautions to protect the back. Finding activity like cycling or hiking and get into the habit of engaging in it. Stretching before and after the exercises important. It is also important to contact me if there are any problems like shortness of breath, chest pain, back pain and joint or muscle pain associated with the exercise. 3. Discussed age appropriate screening guidelines. Colonoscopy needs to start at age 50 with stool for occult blood as appropriate. There is a new test that can test for genetic abnormalities in the stool sample. This would not replace a colonoscopy but could be used as a screening tool for patients who do not want a colonoscopy. We discussed the importance of early detection of colon cancer. 4. Discussed current guidelines with respect to breast examination, mammogram and pap smear for early detection of breast and cervical cancer. Patient advised to follow up with these appointments. 5. Discussed safe driving and no use of smart phone while driving 6. Age-appropriate immunizations were discussed. A tetanus booster is needed every 10 years. Flu vaccine is recommended every year just before the start of the flu season. Shingles vaccine is recommended after age 50 but not all insurances cover it.Pneumonia vaccine is given after age 65 unless there are certain comorbidities for which it is started earlier. 7. Diagnostic labs were discussed. These could include CBC CMP and lipids with fasting blood glucose and insulin levels. Vitamin D and hemoglobin A1c testing might be appropriate. Case discussed with collaborating physician Julienne Cardenas who reviewed the assessment and plan. Chart, medications, labs, vital signs reviewed. Dictation was accomplished with the use of Dragon voice recognition software, prone to medical misidentifications and grammatical errors. This is unintentional and the practitioner does try to identify and correct these, but some could still be present. Please do not hesitate to contact practitioner for clarification. All questions answered to patients satisfaction. Patient verbalized understanding of diagnosis and treatments explained. To call sooner prior to next visit it any questions/concerns arise. 08/22/2024 Encounter for examination of blood pressure without abnormal findings (ICD-10 - Z01.30) #Leukocytosis. CBC only obtained. Need peripheral smear. Consider consultation to hematology if peripheral smear is abnormal. Would like to rule out CLL. #Hypertension. Well-controlled # Left hip pain. Check L hip and pelvic x-ray. ? OA. # Fatigue. Awaiting pt to complete lab work. Case discussed with collaborating physician Jesusita Cardenas who reviewed the assessment and plan. Chart, medications, labs, vital signs reviewed. Dictation was accomplished with the use of [employer] voice recognition software, prone to medical misidentifications and grammatical errors. This is unintentional and the practitioner does try to identify and correct these, but some could still be present. Please do not hesitate to contact practitioner for clarification. All questions answered to patients satisfaction. Patient verbalized understanding of diagnosis and treatments explained. To call sooner prior to next visit it any questions/concerns arise. 04/10/2024 Hyperlipidemia, unspecified (ICD-10 - E78.5) #Leukocytosis. CBC only obtained. Need peripheral smear. Consider consultation to hematology if peripheral smear is abnormal. Would like to rule out CLL. #Hypertension. Well-controlled #Asthma. Patient was instructed to rinse her mouth after use of Trelegy, as this could be contributing to recurrent sinusitis and tooth infections. # URI sx. COVID swab pending. High risk for bronchitis given smoking hx # Chest pain; Reports ongoing off and on over a few months. Check EKG. Stress test will be ordered .No family hx of cardiac disease # Vaccines: UTD # Screenings: Mammo/bone density due. STAFF THERAPIST pap due. # HCP: Daughter Patient seen and examined. Comprehensive discussion was done on the following. 1. Nutrition: It is important to follow a healthy diet based on lots of vegetables and legumes and good fat. Avoid processed food and processed carbohydrates. Learn to prepare your own meals. Learn to read labels and avoid high fructose corn syrup, processed chemicals added to increase shelf life and preprepared meals. Avoid fast foods. Learn to eat slowly and plan meals for a week. Try to count calories and be mindful off daily calorie intake. Get into the habit of keeping an eye on your weight by using an appropriate scale. Learn to log exercise and discussed fitness Apps like [employer] which can help keep log off calories taken versus calories burned. Local food should be preferred. Discussed Dirty Dozen Versus Clean Fifteen. Discussed healthy supplements like fish oil, Tumeric, Curcumin, Melatonin, Resveratrol, Probiotics, Vitamin-D, Alpha-Lipoic acid, Vitamin-D and coconut oil. 2. It is important to exercise regularly. Is a good habit to walk at least 30-45 minutes a day. Gentle weightlifting with standard precautions to protect the back. Finding activity like cycling or hiking and get into the habit of engaging in it. Stretching before and after the exercises important. It is also important to contact me if there are any problems like shortness of breath, chest pain, back pain and joint or muscle pain associated with the exercise. 3. Discussed age appropriate screening guidelines. Colonoscopy needs to start at age 50 with stool for occult blood as appropriate. There is a new test that can test for genetic abnormalities in the stool sample. This would not replace a colonoscopy but could be used as a screening tool for patients who do not want a colonoscopy. We discussed the importance of early detection of colon cancer. 4. Discussed current guidelines with respect to breast examination, mammogram and pap smear for early detection of breast and cervical cancer. Patient advised to follow up with these appointments. 5. Discussed safe driving and no use of smart phone while driving 6. Age-appropriate immunizations were discussed. A tetanus booster is needed every 10 years. Flu vaccine is recommended every year just before the start of the flu season. Shingles vaccine is recommended after age 50 but not all insurances cover it.Pneumonia vaccine is given after age 65 unless there are certain comorbidities for which it is started earlier. 7. Diagnostic labs were discussed. These could include CBC CMP and lipids with fasting blood glucose and insulin levels. Vitamin D and hemoglobin A1c testing might be appropriate. Case discussed with collaborating physician Julienne Cardenas who reviewed the assessment and plan. Chart, medications, labs, vital signs reviewed. Dictation was accomplished with the use of [employer] voice recognition software, prone to medical misidentifications and grammatical errors. This is unintentional and the practitioner does try to identify and correct these, but some could still be present. Please do not hesitate to contact practitioner for clarification. All questions answered to patients satisfaction. Patient verbalized understanding of diagnosis and treatments explained. To call sooner prior to next visit it any questions/concerns arise. 04/10/2024 Vitamin D deficiency (ICD-10 - E55.9) #Leukocytosis. CBC only obtained. Need peripheral smear. Consider consultation to hematology if peripheral smear is abnormal. Would like to rule out CLL. #Hypertension. Well-controlled #Asthma. Patient was instructed to rinse her mouth after use of Trelegy, as this could be contributing to recurrent sinusitis and tooth infections. # URI sx. COVID swab pending. High risk for bronchitis given smoking hx # Chest pain; Reports ongoing off and on over a few months. Check EKG. Stress test will be ordered .No family hx of cardiac disease # Vaccines: UTD # Screenings: Mammo/bone density due. STAFF THERAPIST pap due. # HCP: Daughter Patient seen and examined. Comprehensive discussion was done on the following. 1. Nutrition: It is important to follow a healthy diet based on lots of vegetables and legumes and good fat. Avoid processed food and processed carbohydrates. Learn to prepare your own meals. Learn to read labels and avoid high fructose corn syrup, processed chemicals added to increase shelf life and preprepared meals. Avoid fast foods. Learn to eat slowly and plan meals for a week. Try to count calories and be mindful off daily calorie intake. Get into the habit of keeping an eye on your weight by using an appropriate scale. Learn to log exercise and discussed fitness Apps like [employer] which can help keep log off calories taken versus calories burned. Local food should be preferred. Discussed Dirty Dozen Versus Clean Fifteen. Discussed healthy supplements like fish oil, Tumeric, Curcumin, Melatonin, Resveratrol, Probiotics, Vitamin-D, Alpha-Lipoic acid, Vitamin-D and coconut oil. 2. It is important to exercise regularly. Is a good habit to walk at least 30-45 minutes a day. Gentle weightlifting with standard precautions to protect the back. Finding activity like cycling or hiking and get into the habit of engaging in it. Stretching before and after the exercises important. It is also important to contact me if there are any problems like shortness of breath, chest pain, back pain and joint or muscle pain associated with the exercise. 3. Discussed age appropriate screening guidelines. Colonoscopy needs to start at age 50 with stool for occult blood as appropriate. There is a new test that can test for genetic abnormalities in the stool sample. This would not replace a colonoscopy but could be used as a screening tool for patients who do not want a colonoscopy. We discussed the importance of early detection of colon cancer. 4. Discussed current guidelines with respect to breast examination, mammogram and pap smear for early detection of breast and cervical cancer. Patient advised to follow up with these appointments. 5. Discussed safe driving and no use of smart phone while driving 6. Age-appropriate immunizations were discussed. A tetanus booster is needed every 10 years. Flu vaccine is recommended every year just before the start of the flu season. Shingles vaccine is recommended after age 50 but not all insurances cover it.Pneumonia vaccine is given after age 65 unless there are certain comorbidities for which it is started earlier. 7. Diagnostic labs were discussed. These could include CBC CMP and lipids with fasting blood glucose and insulin levels. Vitamin D and hemoglobin A1c testing might be appropriate. Case discussed with collaborating physician Julienne Cardenas who reviewed the assessment and plan. Chart, medications, labs, vital signs reviewed. Dictation was accomplished with the use of [employer] voice recognition software, prone to medical misidentifications and grammatical errors. This is unintentional and the practitioner does try to identify and correct these, but some could still be present. Please do not hesitate to contact practitioner for clarification. All questions answered to patients satisfaction. Patient verbalized understanding of diagnosis and treatments explained. To call sooner prior to next visit it any questions/concerns arise. 04/10/2024 Hypothyroidism, unspecified type (ICD-10 - E03.9) #Leukocytosis. CBC only obtained. Need peripheral smear. Consider consultation to hematology if peripheral smear is abnormal. Would like to rule out CLL. #Hypertension. Well-controlled #Asthma. Patient was instructed to rinse her mouth after use of Trelegy, as this could be contributing to recurrent sinusitis and tooth infections. # URI sx. COVID swab pending. High risk for bronchitis given smoking hx # Chest pain; Reports ongoing off and on over a few months. Check EKG. Stress test will be ordered .No family hx of cardiac disease # Vaccines: UTD # Screenings: Mammo/bone density due. STAFF THERAPIST pap due. # HCP: Daughter Patient seen and examined. Comprehensive discussion was done on the following. 1. Nutrition: It is important to follow a healthy diet based on lots of vegetables and legumes and good fat. Avoid processed food and processed carbohydrates. Learn to prepare your own meals. Learn to read labels and avoid high fructose corn syrup, processed chemicals added to increase shelf life and preprepared meals. Avoid fast foods. Learn to eat slowly and plan meals for a week. Try to count calories and be mindful off daily calorie intake. Get into the habit of keeping an eye on your weight by using an appropriate scale. Learn to log exercise and discussed fitness Apps like [employer] which can help keep log off calories taken versus calories burned. Local food should be preferred. Discussed Dirty [employer]zen Vers[employer] Clean Fifteen. Discussed healthy supplements like fish oil, Tumeric, Curcumin, Melatonin, Resveratrol, Probiotics, Vitamin-D, Alpha-Lipoic acid, Vitamin-D and coconut oil. 2. It is important to exercise regularly. Is a good habit to walk at least 30-45 minutes a day. Gentle weightlifting with standard precautions to protect the back. Finding activity like cycling or hiking and get into the habit of engaging in it. Stretching before and after the exercises important. It is also important to contact me if there are any problems like shortness of breath, chest pain, back pain and joint or muscle pain associated with the exercise. 3. Discussed age appropriate screening guidelines. Colonoscopy needs to start at age 50 with stool for occult blood as appropriate. There is a new test that can test for genetic abnormalities in the stool sample. This would not replace a colonoscopy but could be used as a screening tool for patients who do not want a colonoscopy. We discussed the importance of early detection of colon cancer. 4. Discussed current guidelines with respect to breast examination, mammogram and pap smear for early detection of breast and cervical cancer. Patient advised to follow up with these appointments. 5. Discussed safe driving and no use of smart phone while driving 6. Age-appropriate immunizations were discussed. A tetanus booster is needed every 10 years. Flu vaccine is recommended every year just before the start of the flu season. Shingles vaccine is recommended after age 50 but not all insurances cover it.Pneumonia vaccine is given after age 65 unless there are certain comorbidities for which it is started earlier. 7. Diagnostic labs were discussed. These could include CBC CMP and lipids with fasting blood glucose and insulin levels. Vitamin D and hemoglobin A1c testing might be appropriate. Case discussed with collaborating physician Julienne Cardenas who reviewed the assessment and plan. Chart, medications, labs, vital signs reviewed. Dictation was accomplished with the use of Be [employer]otted voice recognition software, prone to medical misidentifications and grammatical errors. This is unintentional and the practitioner does try to identify and correct these, but some could still be present. Please do not hesitate to contact practitioner for clarification. All questions answered to patients satisfaction. Patient verbalized understanding of diagnosis and treatments explained. To call sooner prior to next visit it any questions/concerns arise. 04/10/2024 Anemia due to vitamin B12 deficiency, unspecified B12 deficiency type (ICD-10 - D51.9) #Leukocytosis. CBC only obtained. Need peripheral smear. Consider consultation to hematology if peripheral smear is abnormal. Would like to rule out CLL. #Hypertension. Well-controlled #Asthma. Patient was instructed to rinse her mouth after use of Trelegy, as this could be contributing to recurrent sinusitis and tooth infections. # URI sx. COVID swab pending. High risk for bronchitis given smoking hx # Chest pain; Reports ongoing off and on over a few months. Check EKG. Stress test will be ordered .No family hx of cardiac disease # Vaccines: UTD # Screenings: Mammo/bone density due. STAFF THERAPIST pap due. # HCP: Daughter Patient seen and examined. Comprehensive discussion was done on the following. 1. Nutrition: It is important to follow a healthy diet based on lots of vegetables and legumes and good fat. Avoid processed food and processed carbohydrates. Learn to prepare your own meals. Learn to read labels and avoid high fructose corn syrup, processed chemicals added to increase shelf life and preprepared meals. Avoid fast foods. Learn to eat slowly and plan meals for a week. Try to count calories and be mindful off daily calorie intake. Get into the habit of keeping an eye on your weight by using an appropriate scale. Learn to log exercise and discussed fitness Apps like [employer] which can help keep log off calories taken versus calories burned. Local food should be preferred. Discussed Dirty Dozen Versus Clean Fifteen. Discussed healthy supplements like fish oil, Tumeric, Curcumin, Melatonin, Resveratrol, Probiotics, Vitamin-D, Alpha-Lipoic acid, Vitamin-D and coconut oil. 2. It is important to exercise regularly. Is a good habit to walk at least 30-45 minutes a day. Gentle weightlifting with standard precautions to protect the back. Finding activity like cycling or hiking and get into the habit of engaging in it. Stretching before and after the exercises important. It is also important to contact me if there are any problems like shortness of breath, chest pain, back pain and joint or muscle pain associated with the exercise. 3. Discussed age appropriate screening guidelines. Colonoscopy needs to start at age 50 with stool for occult blood as appropriate. There is a new test that can test for genetic abnormalities in the stool sample. This would not replace a colonoscopy but could be used as a screening tool for patients who do not want a colonoscopy. We discussed the importance of early detection of colon cancer. 4. Discussed current guidelines with respect to breast examination, mammogram and pap smear for early detection of breast and cervical cancer. Patient advised to follow up with these appointments. 5. Discussed safe driving and no use of smart phone while driving 6. Age-appropriate immunizations were discussed. A tetanus booster is needed every 10 years. Flu vaccine is recommended every year just before the start of the flu season. Shingles vaccine is recommended after age 50 but not all insurances cover it.Pneumonia vaccine is given after age 65 unless there are certain comorbidities for which it is started earlier. 7. Diagnostic labs were discussed. These could include CBC CMP and lipids with fasting blood glucose and insulin levels. Vitamin D and hemoglobin A1c testing might be appropriate. Case discussed with collaborating physician Julienne Cardenas who reviewed the assessment and plan. Chart, medications, labs, vital signs reviewed. Dictation was accomplished with the use of [employer] voice recognition software, prone to medical misidentifications and grammatical errors. This is unintentional and the practitioner does try to identify and correct these, but some could still be present. Please do not hesitate to contact practitioner for clarification. All questions answered to patients satisfaction. Patient verbalized understanding of diagnosis and treatments explained. To call sooner prior to next visit it any questions/concerns arise. 04/10/2024 Breast cancer screening by mammogram (ICD-10 - Z12.31) #Leukocytosis. CBC only obtained. Need peripheral smear. Consider consultation to hematology if peripheral smear is abnormal. Would like to rule out CLL. #Hypertension. Well-controlled #Asthma. Patient was instructed to rinse her mouth after use of Trelegy, as this could be contributing to recurrent sinusitis and tooth infections. # URI sx. COVID swab pending. High risk for bronchitis given smoking hx # Chest pain; Reports ongoing off and on over a few months. Check EKG. Stress test will be ordered .No family hx of cardiac disease # Vaccines: UTD # Screenings: Mammo/bone density due. STAFF THERAPIST pap due. # HCP: Daughter Patient seen and examined. Comprehensive discussion was done on the following. 1. Nutrition: It is important to follow a healthy diet based on lots of vegetables and legumes and good fat. Avoid processed food and processed carbohydrates. Learn to prepare your own meals. Learn to read labels and avoid high fructose corn syrup, processed chemicals added to increase shelf life and preprepared meals. Avoid fast foods. Learn to eat slowly and plan meals for a week. Try to count calories and be mindful off daily calorie intake. Get into the habit of keeping an eye on your weight by using an appropriate scale. Learn to log exercise and discussed fitness Apps like [employer] which can help keep log off calories taken versus calories burned. Local food should be preferred. Discussed Dirty Dozen Versus Clean Fifteen. Discussed healthy supplements like fish oil, Tumeric, Curcumin, Melatonin, Resveratrol, Probiotics, Vitamin-D, Alpha-Lipoic acid, Vitamin-D and coconut oil. 2. It is important to exercise regularly. Is a good habit to walk at least 30-45 minutes a day. Gentle weightlifting with standard precautions to protect the back. Finding activity like cycling or hiking and get into the habit of engaging in it. Stretching before and after the exercises important. It is also important to contact me if there are any problems like shortness of breath, chest pain, back pain and joint or muscle pain associated with the exercise. 3. Discussed age appropriate screening guidelines. Colonoscopy needs to start at age 50 with stool for occult blood as appropriate. There is a new test that can test for genetic abnormalities in the stool sample. This would not replace a colonoscopy but could be used as a screening tool for patients who do not want a colonoscopy. We discussed the importance of early detection of colon cancer. 4. Discussed current guidelines with respect to breast examination, mammogram and pap smear for early detection of breast and cervical cancer. Patient advised to follow up with these appointments. 5. Discussed safe driving and no use of smart phone while driving 6. Age-appropriate immunizations were discussed. A tetanus booster is needed every 10 years. Flu vaccine is recommended every year just before the start of the flu season. Shingles vaccine is recommended after age 50 but not all insurances cover it.Pneumonia vaccine is given after age 65 unless there are certain comorbidities for which it is started earlier. 7. Diagnostic labs were discussed. These could include CBC CMP and lipids with fasting blood glucose and insulin levels. Vitamin D and hemoglobin A1c testing might be appropriate. Case discussed with collaborating physician Julienne Cardenas who reviewed the assessment and plan. Chart, medications, labs, vital signs reviewed. Dictation was accomplished with the use of [employer] voice recognition software, prone to medical misidentifications and grammatical errors. This is unintentional and the practitioner does try to identify and correct these, but some could still be present. Please do not hesitate to contact practitioner for clarification. All questions answered to patients satisfaction. Patient verbalized understanding of diagnosis and treatments explained. To call sooner prior to next visit it any questions/concerns arise. 04/10/2024 Encounter for screening for osteoporosis (ICD-10 - Z13.820) #Leukocytosis. CBC only obtained. Need peripheral smear. Consider consultation to hematology if peripheral smear is abnormal. Would like to rule out CLL. #Hypertension. Well-controlled #Asthma. Patient was instructed to rinse her mouth after use of Trelegy, as this could be contributing to recurrent sinusitis and tooth infections. # URI sx. COVID swab pending. High risk for bronchitis given smoking hx # Chest pain; Reports ongoing off and on over a few months. Check EKG. Stress test will be ordered .No family hx of cardiac disease # Vaccines: UTD # Screenings: Mammo/bone density due. STAFF THERAPIST pap due. # HCP: Daughter Patient seen and examined. Comprehensive discussion was done on the following. 1. Nutrition: It is important to follow a healthy diet based on lots of vegetables and legumes and good fat. Avoid processed food and processed carbohydrates. Learn to prepare your own meals. Learn to read labels and avoid high fructose corn syrup, processed chemicals added to increase shelf life and preprepared meals. Avoid fast foods. Learn to eat slowly and plan meals for a week. Try to count calories and be mindful off daily calorie intake. Get into the habit of keeping an eye on your weight by using an appropriate scale. Learn to log exercise and discussed fitness Apps like [employer] which can help keep log off calories taken versus calories burned. Local food should be preferred. Discussed Dirty Dozen Versus Clean Fifteen. Discussed healthy supplements like fish oil, Tumeric, Curcumin, Melatonin, Resveratrol, Probiotics, Vitamin-D, Alpha-Lipoic acid, Vitamin-D and coconut oil. 2. It is important to exercise regularly. Is a good habit to walk at least 30-45 minutes a day. Gentle weightlifting with standard precautions to protect the back. Finding activity like cycling or hiking and get into the habit of engaging in it. Stretching before and after the exercises important. It is also important to contact me if there are any problems like shortness of breath, chest pain, back pain and joint or muscle pain associated with the exercise. 3. Discussed age appropriate screening guidelines. Colonoscopy needs to start at age 50 with stool for occult blood as appropriate. There is a new test that can test for genetic abnormalities in the stool sample. This would not replace a colonoscopy but could be used as a screening tool for patients who do not want a colonoscopy. We discussed the importance of early detection of colon cancer. 4. Discussed current guidelines with respect to breast examination, mammogram and pap smear for early detection of breast and cervical cancer. Patient advised to follow up with these appointments. 5. Discussed safe driving and no use of smart phone while driving 6. Age-appropriate immunizations were discussed. A tetanus booster is needed every 10 years. Flu vaccine is recommended every year just before the start of the flu season. Shingles vaccine is recommended after age 50 but not all insurances cover it.Pneumonia vaccine is given after age 65 unless there are certain comorbidities for which it is started earlier. 7. Diagnostic labs were discussed. These could include CBC CMP and lipids with fasting blood glucose and insulin levels. Vitamin D and hemoglobin A1c testing might be appropriate. Case discussed with collaborating physician Julienne Cardenas who reviewed the assessment and plan. Chart, medications, labs, vital signs reviewed. Dictation was accomplished with the use of Be [employer] voice recognition software, prone to medical misidentifications and grammatical errors. This is unintentional and the practitioner does try to identify and correct these, but some could still be present. Please do not hesitate to contact practitioner for clarification. All questions answered to patients satisfaction. Patient verbalized understanding of diagnosis and treatments explained. To call sooner prior to next visit it any questions/concerns arise. 04/10/2024 Close exposure to 2019 novel coronavirus (ICD-10 - Z20.822) #Leukocytosis. CBC only obtained. Need peripheral smear. Consider consultation to hematology if peripheral smear is abnormal. Would like to rule out CLL. #Hypertension. Well-controlled #Asthma. Patient was instructed to rinse her mouth after use of Trelegy, as this could be contributing to recurrent sinusitis and tooth infections. # URI sx. COVID swab pending. High risk for bronchitis given smoking hx # Chest pain; Reports ongoing off and on over a few months. Check EKG. Stress test will be ordered .No family hx of cardiac disease # Vaccines: UTD # Screenings: Mammo/bone density due. STAFF THERAPIST pap due. # HCP: Daughter Patient seen and examined. Comprehensive discussion was done on the following. 1. Nutrition: It is important to follow a healthy diet based on lots of vegetables and legumes and good fat. Avoid processed food and processed carbohydrates. Learn to prepare your own meals. Learn to read labels and avoid high fructose corn syrup, processed chemicals added to increase shelf life and preprepared meals. Avoid fast foods. Learn to eat slowly and plan meals for a week. Try to count calories and be mindful off daily calorie intake. Get into the habit of keeping an eye on your weight by using an appropriate scale. Learn to log exercise and discussed fitness Apps like [employer] which can help keep log off calories taken versus calories burned. Local food should be preferred. Discussed Dirty Dozen Versus Clean Fifteen. Discussed healthy supplements like fish oil, Tumeric, Curcumin, Melatonin, Resveratrol, Probiotics, Vitamin-D, Alpha-Lipoic acid, Vitamin-D and coconut oil. 2. It is important to exercise regularly. Is a good habit to walk at least 30-45 minutes a day. Gentle weightlifting with standard precautions to protect the back. Finding activity like cycling or hiking and get into the habit of engaging in it. Stretching before and after the exercises important. It is also important to contact me if there are any problems like shortness of breath, chest pain, back pain and joint or muscle pain associated with the exercise. 3. Discussed age appropriate screening guidelines. Colonoscopy needs to start at age 50 with stool for occult blood as appropriate. There is a new test that can test for genetic abnormalities in the stool sample. This would not replace a colonoscopy but could be used as a screening tool for patients who do not want a colonoscopy. We discussed the importance of early detection of colon cancer. 4. Discussed current guidelines with respect to breast examination, mammogram and pap smear for early detection of breast and cervical cancer. Patient advised to follow up with these appointments. 5. Discussed safe driving and no use of smart phone while driving 6. Age-appropriate immunizations were discussed. A tetanus booster is needed every 10 years. Flu vaccine is recommended every year just before the start of the flu season. Shingles vaccine is recommended after age 50 but not all insurances cover it.Pneumonia vaccine is given after age 65 unless there are certain comorbidities for which it is started earlier. 7. Diagnostic labs were discussed. These could include CBC CMP and lipids with fasting blood glucose and insulin levels. Vitamin D and hemoglobin A1c testing might be appropriate. Case discussed with collaborating physician Julienne Cardenas who reviewed the assessment and plan. Chart, medications, labs, vital signs reviewed. Dictation was accomplished with the use of [employer] voice recognition software, prone to medical misidentifications and grammatical errors. This is unintentional and the practitioner does try to identify and correct these, but some could still be present. Please do not hesitate to contact practitioner for clarification. All questions answered to patients satisfaction. Patient verbalized understanding of diagnosis and treatments explained. To call sooner prior to next visit it any questions/concerns arise. Plan Of Treatment Pending Test Test Name Order Date Lipid Panel 07/22/2020 Comp. Metabolic Panel (14) 07/22/2020 CBC 07/22/2020 MAMMOGRAM, SCREENING 04/10/2024 Bone Density 04/10/2024 Ultrasound : Kidneys and Bladder 021 Urinalysis 07/22/2020 X ray : Lower leg, left 01/28/2023 EKG 04/10/2024 25 HYDROXY VITAMIN D2 D3 04/22/2020 CBC (COMPLETE BLOOD COUNT) 04/22/2020 CBC (COMPLETE BLOOD COUNT) 03/11/2020 COMPREHENSIVE METABOLIC PANEL 03/11/2020 COMPREHENSIVE METABOLIC PANEL 04/22/2020 HEMOGLOBIN A1C 04/22/2020 LIPID PANEL 04/22/2020 LIPID PANEL 04/22/2020 LIPID PANEL 03/11/2020 URINALYSIS, COMPLETE 03/11/2020 XR Hip 2+ Views LT 08/22/2024 XR Pelvis 1-2 Views 08/22/2024 LIPID PANEL, STANDARD 04/10/2024 LIPID PANEL, STANDARD 09/30/2022 COMPREHENSIVE METABOLIC PANEL 09/30/2022 COMPREHENSIVE METABOLIC PANEL (REFL) CBC (INCLUDES DIFF/PLT) 04/10/2024 CBC (INCLUDES DIFF/PLT) 09/30/2022 CBC (INCLUDES DIFF/PLT) 06/28/2023 URINALYSIS, COMPLETE 09/30/2022 URINALYSIS, COMPLETE 04/10/2024 VITAMIN B12 04/10/2024 T4, FREE 04/10/2024 TSH 04/10/2024 T3, FREE 04/10/2024 VITAMIN D,25-OH,TOTAL,IA 04/10/2024 VITAMIN D,25-OH,TOTAL,IA 01/28/2023 PERIPHERAL BLOOD SMEAR REVIEW 04/10/2024 PERIPHERAL BLOOD SMEAR REVIEW 06/28/2023 Next Appt Details Provider Name:ANGEL AMADOR, 02/22/2025 03:30:00 PM, [address], [place], [address], Insurance Providers Payer Name Payer Address Payer Phone Subscriber Number Group Number Insured Name Patient Relationship to Insured Coverage Start Date Coverage End Date [facility] [address] [place] [address] [phone] [id number] LILIAN ADDISON Self - patient is the insured 3 Medical (General) History Medical History History ICD Code Elevated white blood cell count, unspeci fied D72.829 Hyperlipidemia E78.5 Asthma J45.909 Seasonal allergies J30.2 Tobacco abuse Z72.0 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
--- OUTSIDE RECORDS SUMMARY | 2024-11-20 10:37 | XMS_ITS | Clinical Summary ---
Author Organization [address] Address [address] [place] [address] Phone Care Team Providers Care Configuration Release Manager Name Role Phone Ronald lAcides Mc MD Primary Care Provider [phone] Allergies No known active allergies Medications aspirin 81 mg EC tablet Take 81 mg by mouth daily. Active atorvastatin (LIPITOR) 40 mg tablet Take 40 mg by mouth daily. Active bisacodyL 5 mg tablet Take 4 tablets by mouth right before your first dose of liquid prep. 1 Active hydroCHLOROthia zide (MICROZIDE) 12.5 mg capsule Take 1 capsule (12.5 mg total) by mouth 1 (one) time each day. Active fluticasone-ume clidinium-vilan terol (Trelegy Ellipta) 100-62.5-25 mcg inhaler Inhale 1 puff (100 mcg total) by mouth 1 (one) time each day. Rinse mouth with water after use to reduce aftertaste and incidence of candidiasis. Do not swallow. Active Social History Tobacco Use Types Packs/Day Years Used Date Smoking Tobacco: Some Days Cigarettes Smokeless Tobacco: Never Tobacco Cessation:Ready to Q uit: Not Asked; Counseling Given: Not Answered Alcohol Use Standard Drinks/Week Comments Yes 0 (1 standard drink = 0.6 oz pur e alcohol) occ Comments Unknown Sex and Gender Information Value Date Recorded Sex Assigned at Not on file Legal Sex Female 10:05 PM EST Gender Identity Not on file Sexual Orientation Not on file Obstetrics History Last Filed Vital Signs Vital Sign Reading Time Taken Comments Blood Pressure 140/70 07/31/2024 7:53 AM EDT Pulse - - Temperature - - Respiratory Rate - - Oxygen Saturation - - Inhaled Oxygen Concentration - - Weight 62.5 kg (137 lb 12.8 oz) 07/31/2024 7:39 AM EDT Height 152.4 cm (5') 07/31/2024 7:39 AM EDT Body Mass Index 26.91 07/31/2024 7:39 AM EDT Plan of Treatment Health Maintenance Due Date Last Done Comments Breast Cancer Screening 1965 Pneumococcal Vaccine: 50+ Years (1 of 2 - PCV) 1982 Cervical Cancer Screening: Pap Smear 1984 Cholesterol Screening (Lipid Panel) 03/21/2022 HIV Screening 03/21/2022 Hepatitis C Screening 03/21/2022 Social Influencers of Health Screening 03/21/2022 COVID-19 Vaccine ( season) 2023 02/14/2022, 03/07/2021, 07/19/2020 Depression Screening 04/12/2024 Influenza Vaccine (#1) 2024 , 01/22/2022, 02/11/2021, Additional history exists Colorectal Cancer Screening: Colonoscopy 11/11/2025 11/11/2020 DTaP,Tdap,and Td Vaccines (2 - Td or Tdap) 04/03/2029 04/03/2019 RSV Immunization Adult Patients (1 - 1-dose 75+ series) 2038 Zoster Vaccines Completed 06/13/2022, 03/11/2022 HIB Vaccines Aged Out No longer eligi ble based on patient's age to complete this topic HPV Vaccines Aged Out No longer eligi ble based on patient's age to complete this topic Hepatitis A Vaccines Aged Out No long er eligible based on patient's age to complete this topic Hepatitis B Vaccines Aged Out No long er eligible based on patient's age to complete this topic IPV Vaccines Aged Out No longer eligi ble based on patient's age to complete this topic MMR Vaccines Aged Out No longer eligi ble based on patient's age to complete this topic Meningococcal ACWY Vaccine Aged Out N o longer eligible based on patient's age to complete this topic Meningococcal B Vaccine Aged Out No l onger eligible based on patient's age to complete this topic RSV Immunization Patients Under 20 months Aged Out No longer eligible based on patient's age to complete this topic Varicella Vaccines Aged Out No longer eligible based on patient's age to complete this topic Procedures Procedure Name Priority Date/Time Associated Diagnosis Comments COLONOSCOPY Routine 11/11/2020 from Last 3 Months or Most Recently Relevant to Health Maintenance Results * Colonoscopy (11/11/2020) Colonoscopy No Interpretation , Abstracted Anatomical Region Laterality Modality Other Historical Provider HEALTH MAINTENANCE Final Result from Last 3 Months or Most Recently Relevant to Health Maintenance Insurance [place] [address] Care Teams Configuration Release Manager Relationship Specialty Start Date End Date Alcides Cardenas MD [address] [place] [phone] PCP - General Internal Medicine 05/15/24
== END 2024-11-20 10:28 | disposition home or self-care (01) ==
LOC: HO.HPS 10:01
PROVIDERS: PCP Internal Medicine; Visit Provider Hospitalist
DX: F17.200 Nicotine dependence, unspecified, uncomplicated (principal); R05.2 Subacute cough; J41.8 Mixed simple and mucopurulent chronic bronchitis
CPT/HCPCS: 99214